=== PATIENT | female | born 1950 | race Caucasian/White ===

== ENCOUNTER 2019-03-18 12:36 | Outpatient (RCR) | payer MEDICARE, MEDICAID, SELFPAY | END 2019-04-12 23:59 | LOC: NS 12:36 | PROVIDERS: Visit Provider Internal Medicine | DX: E66.01 Morbid (severe) obesity due to excess calories (principal); Z68.41 Body mass index [BMI] 40.0-44.9, adult; E11.65 Type 2 diabetes mellitus with hyperglycemia; Z71.3 Dietary counseling and surveillance | CPT/HCPCS: 97803 ==

== ENCOUNTER 2019-05-13 11:00 | Outpatient (RCR) | payer MEDICARE, MEDICAID, SELFPAY | END 2019-05-13 23:59 | LOC: NS 11:00 | PROVIDERS: Visit Provider Internal Medicine | DX: E66.01 Morbid (severe) obesity due to excess calories (principal); Z68.41 Body mass index [BMI] 40.0-44.9, adult; E11.65 Type 2 diabetes mellitus with hyperglycemia; Z71.3 Dietary counseling and surveillance | CPT/HCPCS: 97803 ==

== ENCOUNTER 2019-05-27 10:57 | Outpatient (RCR) | payer MEDICARE, MEDICAID, SELFPAY | END 2019-05-27 23:59 | disposition home or self-care (01) | LOC: NS 10:57 | PROVIDERS: Visit Provider Internal Medicine | DX: Z71.3 Dietary counseling and surveillance (principal); E66.01 Morbid (severe) obesity due to excess calories; Z68.41 Body mass index [BMI] 40.0-44.9, adult; E11.65 Type 2 diabetes mellitus with hyperglycemia | CPT/HCPCS: G0108 ==

== ENCOUNTER → 2021-01-09 09:43 | Outpatient (CLI) | payer MEDICARE, MEDICAID, SELFPAY ==
[2020-02-22 13:38] VITALS: BMI 44.2
--- NOTE | 2021-01-09 10:00 | BI_ITS ---
STEREOTACTIC CORE BIOPSY REASON FOR EXAM: Female, 70 years old. LEFT BREAST CALCIFICATIONS PERTINENT HISTORY: Calcifications in the upper central portion of the left breast. COMPARISON: Comparison is made with prior outside examination dated 12/18/2020. TECHNIQUE: (All elements of maximal sterile barrier technique followed, including US elements as applicable) Upon arrival to the breast imaging department the patient''s identification was confirmed and the LEFT breast was marked according to time-out protocol. Stereotactic core biopsy and clip placement, to include potential risks and complications, was explained in full to the patient. Written and verbal consent were obtained prior to initiation of the procedure. The patient was placed in prone position on the stereotactic biopsy table with the LEFT breast in the mediolateral oblique compression. Nurse Companion and stereotactic views were then obtained for targeting. The LEFT breast was prepped and draped in standard sterile fashion and local anesthesia was obtained with 1% buffered lidocaine. A small dermatotomy was then made to introduce the core biopsy needle. Multiple core samples were obtained with a 8 gauge vacuum assisted core biopsy needle. The specimen''s were radiographed to determine the presence of calcifications and submitted in formalin for pathology. A titanium clip was then deployed into the biopsy cavity. Upon completion of the procedure hemostasis was obtained and sterile dressing was applied. The patient tolerated the entire procedure without immediate complication and was discharged from the breast imaging department in good condition. BI/Stereo Breast Biopsy 1st Les IMPRESSION: Stereotactic core biopsy for microcalcifications in the LEFT breast without complication. Electronically Signed: Simon Almeida MD at 14:54 EDT , Service support ,
--- NOTE | 2021-01-09 11:15 | BRBX_PTH ---
PATIENT: JUAN JOSÉ BLAIR LOC: [facility] U#:[id number] AGE/SX: 75/F ROOM: RE01/09/[address]: Dr. Tank Campa MD : 1950 BED: DIS: SPEC #: [id number] RECD: 01/09/21 12:13 STATUS: KARTIK RONA #: [id number] BARBER: 01/09/21 11:[address]: Tank Campa DEPT: SURGICAL PATHOLOGY RECD BY: Sandee Espinosa ENTERED: 01/09/21 13:10 SP TYPE: BREAST BX OTHR DR: Dr. Rebeka Mijares MD Tissues: Left breast, NOS Procedures: Surgery Specimen Level IV HEADER OPERATION: Left breast stereotactic biopsy PRE-OP DIAGNOSIS: Left breast 7 o?clock microcalcifications TISSUE SUBMITTED: Left breast core tissue ISCHEMIC TIME: 2 minutes FIXATION TIME: 8.5 hours MICROSCOPIC DIAGNOSIS Left breast at 7 o?clock, stereotactic core biopsy: Hyalinized fibroadenoma with associated calcific change. Vessel wall microcalcifications. Mild fibrocystic change. No evidence of malignancy. AM:augustina 01/10/2021 COMMENT Case has been reviewed in consultation with Dr. Cowart who concurs with the above diagnosis. IDC:[email or web address] MICROSCOPIC DESCRIPTION Slides are reviewed. GROSS DESCRIPTION Received in fixative is one container labeled with the patient name and designated left breast. The specimen consists of multiple elongated fragments of kennedy-yellow fibroadipose tissue that in aggregate measure 7.5 x 3 x 0.3 cm. The entire specimen is submitted in three cassettes. / SJ:augustina 01/09/21 TC:5 CPT: 02944
== END ==
PROVIDERS: PCP Internal Medicine; Referring Provider Surgery; Visit Provider Surgery
DX: D24.2 Benign neoplasm of left breast (principal); N60.12 Diffuse cystic mastopathy of left breast; R92.0 Mammographic microcalcification found on diagnostic imaging of breast
CPT/HCPCS: 19081; 88305; J7050; A4648